=== PATIENT | female | born 1975 | race Caucasian/White ===

== ENCOUNTER 2017-08-02 16:16 | Emergency (ER) | payer OTHER ==
[~2017-08-02] VITALS: Ht 152.4 cm; Wt 54.9 kg
== END 2017-08-02 18:47 | disposition home or self-care (01) ==
LOC: ER 16:16
DX: B34.9 Viral infection, unspecified (principal); R50.9 Fever, unspecified

== ENCOUNTER 2017-09-06 12:02 | Emergency (ER) | payer OTHER ==
[~2017-09-06] VITALS: Ht 149.9 cm; Wt 54.4 kg
[2017-09-06] MEDS ORDERED: TESSALON PERLE100 M1 (12:07)
[2017-09-06] MEDS ORDERED: MUCINEX1200 MG (12:08)
[2017-09-06] MEDS ORDERED: CEFUROXIME250 MG (12:08)
== END 2017-09-06 14:33 | disposition home or self-care (01) ==
LOC: ER 12:02
DX: J02.9 Acute pharyngitis, unspecified (principal)

== ENCOUNTER 2017-09-11 13:27 | Emergency (ER) | payer OTHER ==
[~2017-09-11] VITALS: Ht 152.4 cm; Wt 54.4 kg
[~2017-09-11 13:27] MED LIST: CEFUROXIME250 MG; MUCINEX1200 MG; TESSALON PERLE100 M1
== END 2017-09-11 16:56 | disposition home or self-care (01) ==
LOC: ER 13:27
DX: J31.2 Chronic pharyngitis (principal)